=== PATIENT | female | born 1945 | race Caucasian/White ===

== ENCOUNTER 2016-06-30 12:18 | Inpatient (IN) | payer MEDICARE, OTHER ==
[~2016-06-30] VITALS: Ht 157.5 cm; Wt 78.6 kg
[2016-06-30] MEDS ORDERED: GUAIFENESIN 10 ML UDC PO PRN (12:30)
[2016-06-30 16:00] VITALS: BP_SYST 122; RESP 18; TEMP 98.3; Ht 157.5 cm; Wt 78.6 kg
[2016-06-30] MEDS: MONTELUKAST 10 MG TAB PO SCH (17:35)
[2016-06-30] MEDS: FLUTICASONE 0.05% NA BTL NARE EACH SCH (17:35)
[2016-06-30] MEDS ORDERED: NEB-ALBUTEROL 2.5 MG/3 ML INH PRN (17:35)
[2016-06-30] MEDS: LEVOFLOXACIN 750 MG/150 ML 150 ML IV SCH (17:49)
[2016-06-30] MEDS: Furosemide 40 MG/4 ML VIAL IV SCH (17:49)
[2016-06-30 17:58] VITALS: RESP 16
[2016-06-30 19:05] VITALS: BP_SYST 106; RESP 18; TEMP 97.7
[2016-06-30] MEDS: BENZONATATE 100 MG CAP PO PRN (20:14)
[2016-06-30] MEDS: CETIRIZINE 10 MG TAB PO SCH (20:14)
[2016-06-30] MEDS: METFORMIN 500 MG TAB PO SCH (20:14)
[2016-06-30] MEDS: Carvedilol 6.25 MG TAB PO SCH (20:14)
[2016-06-30] MEDS: DABIGATRAN 150 MG CAP PO SCH (20:14)
[2016-06-30 23:00] VITALS: BP_SYST 109; RESP 18; TEMP 97.6
[2016-07-01 03:00] VITALS: BP_SYST 98; RESP 18; TEMP 97.8
[2016-07-01 07:50] VITALS: BP_SYST 105; RESP 18; TEMP 98.2
[2016-07-01] MEDS: Carvedilol 6.25 MG TAB PO SCH ×2 (08:19→20:21)
[2016-07-01] MEDS: MONTELUKAST 10 MG TAB PO SCH (08:19)
[2016-07-01] MEDS: METFORMIN 500 MG TAB PO SCH ×2 (08:19→20:20)
[2016-07-01] MEDS: DABIGATRAN 150 MG CAP PO SCH ×2 (08:19→20:21)
[2016-07-01] MEDS: LEVOFLOXACIN 750 MG/150 ML 150 ML IV SCH (08:20)
[2016-07-01] MEDS: FLUTICASONE 0.05% NA BTL NARE EACH SCH (08:20)
[2016-07-01] MEDS: Furosemide 40 MG/4 ML VIAL IV SCH ×2 (08:20→16:49)
[2016-07-01] MEDS ORDERED: KCL CR 20 MEQ TAB PO ONE (10:40)
[2016-07-01 11:25] VITALS: BP_SYST 105; RESP 18; TEMP 97.6
[2016-07-01 15:20] VITALS: BP_SYST 108; RESP 18; TEMP 98
[2016-07-01] MEDS: BENZONATATE 100 MG CAP PO PRN (16:01)
[2016-07-01] MEDS: CETIRIZINE 10 MG TAB PO SCH (20:20)
[2016-07-01 20:23] VITALS: BP_SYST 123; RESP 18; TEMP 98.2
[2016-07-01 23:19] VITALS: BP_SYST 120; RESP 16; TEMP 98.2
[2016-07-02 03:38] VITALS: BP_SYST 149; RESP 16; TEMP 97.7
[2016-07-02 07:44] VITALS: BP_SYST 114; RESP 18; TEMP 97.7
[2016-07-02] MEDS: LEVOFLOXACIN 750 MG/150 ML 150 ML IV SCH (08:25)
[2016-07-02] MEDS: FLUTICASONE 0.05% NA BTL NARE EACH SCH (08:26)
[2016-07-02] MEDS: MONTELUKAST 10 MG TAB PO SCH (08:26)
[2016-07-02] MEDS: METFORMIN 500 MG TAB PO SCH ×2 (08:26→20:11)
[2016-07-02] MEDS: Furosemide 40 MG/4 ML VIAL IV SCH ×2 (08:26→16:21)
[2016-07-02] MEDS: Carvedilol 6.25 MG TAB PO SCH ×2 (08:26→20:11)
[2016-07-02] MEDS: DABIGATRAN 150 MG CAP PO SCH ×2 (08:26→20:11)
[2016-07-02] MEDS ORDERED: KCL CR 20 MEQ TAB PO ONE ×2 (10:25→17:00)
[2016-07-02 15:41] VITALS: BP_SYST 108; RESP 14; TEMP 97.6
[2016-07-02] MEDS: CETIRIZINE 10 MG TAB PO SCH (20:11)
[2016-07-02] MEDS: BENZONATATE 100 MG CAP PO PRN (20:23)
[2016-07-02] MEDS: PANTOPRAZOLE 40 MG TAB PO SCH (22:28)
[2016-07-02 23:29] VITALS: BP_SYST 108; RESP 18; TEMP 98
[2016-07-03 03:23] VITALS: BP_SYST 101; RESP 18; TEMP 98.3
[2016-07-03] MEDS: PANTOPRAZOLE 40 MG TAB PO SCH (05:46)
[2016-07-03 07:20] VITALS: BP_SYST 116; RESP 16; TEMP 97.5
[2016-07-03] MEDS ORDERED: LEXISCAN 0.4 MG/5 ML SYRINGE IV ONE (07:35)
[2016-07-03] MEDS: METFORMIN 500 MG TAB PO SCH (09:00)
[2016-07-03] MEDS: DABIGATRAN 150 MG CAP PO SCH (09:45)
[2016-07-03] MEDS: LEVOFLOXACIN 750 MG/150 ML 150 ML IV SCH (09:45)
[2016-07-03] MEDS: FLUTICASONE 0.05% NA BTL NARE EACH SCH (09:45)
[2016-07-03] MEDS: Carvedilol 6.25 MG TAB PO SCH (09:45)
[2016-07-03] MEDS: Furosemide 40 MG/4 ML VIAL IV SCH (09:45)
[2016-07-03] MEDS: MONTELUKAST 10 MG TAB PO SCH (09:45)
[2016-07-03 11:09] VITALS: BP_SYST 125; RESP 16; TEMP 97.4
[2016-07-03 15:06] VITALS: BP_SYST 124; RESP 18; TEMP 97.4
[2016-07-03 16:25] VITALS: BP_SYST 124; RESP 18; TEMP 97.4
[2016-07-05] MEDS ORDERED: METFORMIN 500 MG TAB PO SCH (21:00)
== END 2016-07-03 17:18 | disposition home or self-care (01) | DRG 293 ==
LOC: ENRESERVDT → ENRESERVTM → PCU 15:04 → ENPENDDIS 15:04
PROVIDERS: ADMIT Specialist; ATTEND Specialist
DX: I11.0 Hypertensive heart disease with heart failure (principal); E11.9 Type 2 diabetes mellitus without complications; I50.21 Acute systolic (congestive) heart failure; I34.0 Nonrheumatic mitral (valve) insufficiency; Z79.82 Long term (current) use of aspirin; Z79.84 Long term (current) use of oral hypoglycemic drugs
CPT/HCPCS: 71010; 71020; 78451; 80048; 80053; 82553; 82947; 83880; 84484; 85025; 85610; 85730; 93005; 93017; 94640; 94799